=== PATIENT | female | born 1960 | race Caucasian/White ===

== ENCOUNTER → 2018-11-26 07:34 | Outpatient (CLI) | payer OTHER, SELFPAY ==
[2018-11-26 08:08] LABS: Absolute Lymphocyte Count 1.57 X10^3/uL (0.83-4.51); Absolute Neutrophil Count 3.2 X10^3/uL (2.0-7.7); Basophil# 0.04 X10^3/uL; Basophil% 0.7 % (0-1); Eosinophil# 0.12 X10^3/uL; Eosinophils% 2.2 % (0-5); Hemoglobin 14.6 g/dL (12.0-15.0); Lymphocyte # 1.57 X10^3/ul (4.0); Lymphocyte % 29.2 % (19-41); Mean Corpuscular Hgb 32.4 pg (27.0-32.0); Mean Corpuscular Volume 95.6 fL (81-99); Mean Platelet Vol. 10.6 fl (6.2-12.0); Monocyte# 0.44 X10^3/uL; Monocyte% 8.2 % (0-10); NRBC Flagged by Analyzer 0 % (0-5); Neutrophil # 3.19 X10^3/uL (2.7-7.7); Neutrophil % 59.3 % (47-70); Platelet Count 248 K/mm3 (150-450); RBC Distribution Width CV 12.5 % (11.6-14.6); RBC Distribution Width SD 44.3 fl (35.1-43.9); White Blood Count 5.4 K/mm3 (4.4-11.0)
[2018-11-26 08:36] LABS: ALB/GLOB Ratio 1.1 RATIO (0.9-2.4); AST(SGOT) 15 U/L (15-37); Alanine Aminotransfer ALT/SGPT 26 U/L (13-56); Albumin, Serum 3.7 g/dL (3.2-5.0); Alkaline Phosphatase 79 U/L (45-117); Anion Gap 5 (5-15); BUN 12 mg/dL (7-18); BUN/Creat Ratio 16.9 RATIO (10-20); Calcium,Total 8.3 mg/dL (8.5-10.1); Chloride 110 mmol/L (98-107); Cholesterol 228 mg/dL (200); Creatinine, Serum 0.71 mg/dL (0.55-1.02); EST Glomerular Filtration Rate 90 mL/min (>60); Est Glom Filt Rate - Afr Amer 109 mL/min (>60); Globulin 3.4 g/dL (2.2-4.2); Glucose 93 mg/dL (74-106); High Density Lipoprotein 52 mg/dL; Potassium 3.9 mmol/L (3.5-5.1); Protein, Total 7.1 g/dL (6.4-8.2); Sodium Level 143 mmol/L (136-145); Triglycerides 79 mg/dL; Very Low Density Lipoprotein 16 mg/dL (5-40)
== END ==
PROVIDERS: Family Provider Family Medicine; PCP Family Medicine; Referring Provider Family Medicine; Visit Provider Family Medicine
DX: Z00.01 Encounter for general adult medical examination with abnormal findings (principal); E78.5 Hyperlipidemia, unspecified; Z79.890 Hormone replacement therapy
CPT/HCPCS: 36415; 80053; 80061; 85025

== ENCOUNTER → 2019-02-28 16:49 | Outpatient (CLI) | payer OTHER, SELFPAY ==
[2019-03-03 15:03] LABS: Age Gdln ACOG Testing 30-65 (.)
[2019-03-03 15:14] LABS: HPV APTIMA, High Risk Negative (Negative); HPV Reflexed? YES, CHARGE PATIENT
== END ==
PROVIDERS: Family Provider Family Medicine; PCP Family Medicine; Visit Provider Family Medicine
DX: Z12.4 Encounter for screening for malignant neoplasm of cervix (principal)
CPT/HCPCS: 87624; 88175; G0145

== ENCOUNTER → 2019-03-08 16:21 | Outpatient (CLI) | payer OTHER, SELFPAY ==
--- NOTE | 2019-03-08 16:24 | BI_ITS ---
MAMMOGRAPHY - BILATERAL SCREENING REASON FOR EXAM: Female, 58 years old. Routine annual screening examination. PERTINENT HISTORY: Aunt with breast cancer. TECHNIQUE: Digital bilateral breast loy (3D mammographic acquisition) in the CC and MLO projections. 2-D mediolateral oblique (MLO) and craniocaudad (CC) views of both breasts were obtained. CAD: Full Field Digital Mammography with Computer Added Detection was performed. COMPARISON: Comparison is made with prior examination in December 04, 2007. FINDINGS: Breast Composition: The breasts are heterogeneously dense, which may obscure small masses. There are no dominant masses or suspicious calcifications. Stable benign-appearing bilateral axillary lymph nodes. No other significant abnormalities are identified. There has been no significant change since the prior study. BI/SCREEN MAMM (CAD) W/LOY BILAT IMPRESSION: Stable bilateral screening mammogram. Yearly follow-up mammogram recommended. (A) ASSESSMENT CATEGORY: BIRADS Category 2: Benign. A letter regarding these results will be sent to the patient by the facility within 30 days. Approximately 10% of breast cancers are not detected by mammography. A normal mammogram should not delay biopsy of a clinically suspicious abnormality. [id number] Electronically Signed: Dutch Muhammad, at 8:07 EST , Service support ,
== END ==
PROVIDERS: Family Provider Family Medicine; PCP Family Medicine; Referring Provider Family Medicine; Visit Provider Family Medicine
DX: Z12.31 Encounter for screening mammogram for malignant neoplasm of breast (principal); Z80.3 Family history of malignant neoplasm of breast
CPT/HCPCS: 77063; 77067

== ENCOUNTER → 2019-11-06 13:22 | Outpatient (CLI) | payer OTHER, SELFPAY ==
--- NOTE | 2019-11-06 13:28 | BI_ITS ---
MAMMOGRAPHY - BILATERAL DIAGNOSTIC REASON FOR EXAM: Female, 58 years old. Bilateral breast lumps. PERTINENT HISTORY: Aunt with breast cancer. TECHNIQUE: Digital bilateral breast michael (3D mammographic acquisition) in the CC and MLO projections. 2-D mediolateral oblique (MLO) and craniocaudad (CC) views of both breasts were obtained. CAD: Full Field Digital Mammography with Computer Added Detection was performed. COMPARISON: Comparison is made with prior examination dated 03/08/2019. FINDINGS: Breast Composition: The breasts are heterogeneously dense, which may obscure small masses. There are no dominant masses or suspicious calcifications. Stable benign appearing bilateral axillary lymph nodes. No other significant abnormalities are identified. There has been no significant change since the prior study. BI/DIAG MAMM W/CAD, BILAT IMPRESSION: Stable bilateral diagnostic mammogram. With the patient''s history of bilateral palpable lumps, correlation with ultrasound is recommended. ASSESSMENT CATEGORY: BIRADS Category 0: Incomplete. Need additional imaging evaluation. A letter regarding these results will be sent to the patient by the facility within 30 days. Approximately 10% of breast cancers are not detected by mammography. A normal mammogram should not delay biopsy of a clinically suspicious abnormality. Electronically Signed: Dutch Muhammad, at 14:42 EDT , Service support ,
--- NOTE | 2019-11-06 13:28 | US_ITS ---
STUDY: ULTRASOUND BREAST - RIGHT REASON FOR EXAM: Female, 58 years old. Palpable lump in the right breast. TECHNIQUE: Axial and longitudinal images of the RIGHT breast were performed with a high resolution ultrasound transducer. # OF IMAGES: 43 COMPARISON: Comparison is made with prior mammogram done earlier today. FINDINGS: RIGHT Breast: The area of the palpable abnormality was examined by ultrasound. No sonographic abnormality is seen. IMPRESSION: No sonographic abnormality is seen. ASSESSMENT CATEGORY: BIRADS Category 1: Negative. A letter regarding these results will be sent to the patient by the facility within 30 days. Electronically Signed: Dutch Muhammad, at 14:56 EDT , Service support , STUDY: ULTRASOUND BREAST - LEFT REASON FOR EXAM: Female, 58 years old. Palpable lump left breast. TECHNIQUE: Axial and longitudinal images of the LEFT breast were performed with a high resolution ultrasound transducer. # OF IMAGES: 43 COMPARISON: Comparison is made with prior mammogram done earlier today. FINDINGS: LEFT Breast: The area of the palpable abnormality was examined by ultrasound. No sonographic abnormality is seen. US/Breast Limited Unilateral
== END ==
PROVIDERS: PCP Family Medicine; Referring Provider Family Medicine; Visit Provider Family Medicine
DX: N63.10 Unspecified lump in the right breast, unspecified quadrant (principal); N63.20 Unspecified lump in the left breast, unspecified quadrant; Z80.3 Family history of malignant neoplasm of breast
CPT/HCPCS: 76642; 77062; 77066; G0279

== ENCOUNTER → 2019-12-11 10:24 | Outpatient (CLI) | payer OTHER, SELFPAY | PROVIDERS: PCP Family Medicine; Referring Provider Family Medicine; Visit Provider Family Medicine | DX: U07.1 COVID-19 (principal) | CPT/HCPCS: 87635; C9803; U0003 ==

== ENCOUNTER → 2020-05-17 07:34 | Outpatient (CLI) | payer OTHER, SELFPAY ==
[2020-05-17 08:00] LABS: Absolute Lymphocyte Count 1.94 X10^3/uL (0.83-4.51); Absolute Neutrophil Count 3.7 X10^3/uL (2.0-7.7); Basophil# 0.03 X10^3/uL; Basophil% 0.5 % (0-1); Eosinophil# 0.16 X10^3/uL; Eosinophils% 2.5 % (0-5); Hematocrit 46.7 % (37-47); Hemoglobin 15.4 g/dL (12.0-15.0); Lymphocyte # 1.94 X10^3/ul (4.0); Lymphocyte % 30.4 % (19-41); Mean Corpuscular Volume 96.9 fL (81-99); Mean Platelet Vol. 10.4 fl (6.2-12.0); Monocyte# 0.59 X10^3/uL; Monocyte% 9.2 % (0-10); NRBC Flagged by Analyzer 0 % (0-5); Neutrophil # 3.65 X10^3/uL (2.7-7.7); Neutrophil % 57.1 % (47-70); Platelet Count 268 K/mm3 (150-450); RBC Distribution Width CV 12.3 % (11.6-14.6); RBC Distribution Width SD 43.9 fl (35.1-43.9); Red Blood Count 4.82 M/mm3 (4.2-5.4); White Blood Count 6.4 K/mm3 (4.4-11.0)
[2020-05-17 08:25] LABS: AST(SGOT) 16 U/L (15-37); Alanine Aminotransfer ALT/SGPT 27 U/L (13-56); Albumin, Serum 3.8 g/dL (3.2-5.0); Alkaline Phosphatase 96 U/L (45-117); Anion Gap 2 (5-15); BUN 16 mg/dL (7-18); BUN/Creat Ratio 20.7 RATIO (10-20); Chloride 105 mmol/L (98-107); Cholesterol 233 mg/dL (200); Creatinine, Serum 0.77 mg/dL (0.55-1.02); EST Glomerular Filtration Rate 81 mL/min (>60); Est Glom Filt Rate - Afr Amer 99 mL/min (>60); Globulin 3.9 g/dL (2.2-4.2); Glucose 99 mg/dL (74-106); High Density Lipoprotein 58 mg/dL; Protein, Total 7.7 g/dL (6.4-8.2); Sodium Level 139 mmol/L (136-145); Triglycerides 92 mg/dL; Very Low Density Lipoprotein 18 mg/dL (5-40)
== END ==
PROVIDERS: PCP Family Medicine; Referring Provider Family Medicine; Visit Provider Family Medicine
DX: Z01.419 Encounter for gynecological examination (general) (routine) without abnormal findings (principal); E78.5 Hyperlipidemia, unspecified; N95.1 Menopausal and female climacteric states
CPT/HCPCS: 36415; 80053; 80061; 85025

== ENCOUNTER → 2020-11-13 15:54 | Outpatient (CLI) | payer OTHER, SELFPAY ==
--- NOTE | 2020-11-13 15:56 | BI_ITS ---
MAMMOGRAPHY - BILATERAL SCREENING REASON FOR EXAM: Female, 60 years old. Routine annual screening examination. PERTINENT HISTORY: Aunt with breast cancer. TECHNIQUE: Digital bilateral breast loy (3D mammographic acquisition) in the CC and MLO projections. 2-D mediolateral oblique (MLO) and craniocaudad (CC) views of both breasts were obtained. CAD: Full Field Digital Mammography with Computer Added Detection was performed. COMPARISON: Comparison is made with prior study dated 11/06/2019 and 03/08/2019. FINDINGS: Breast Composition: The breasts are heterogeneously dense, which may obscure small masses. There are no dominant masses or suspicious calcifications. No other significant abnormalities are identified. There has been no significant change since the prior study. BI/SCRN MAMM (CAD)W/LOY BILAT IMPRESSION: Stable bilateral screening mammogram. Yearly follow-up mammogram recommended. (A) ASSESSMENT CATEGORY: BIRADS Category 1: Negative. A letter regarding these results will be sent to the patient by the facility within 30 days. Approximately 10% of breast cancers are not detected by mammography. A normal mammogram should not delay biopsy of a clinically suspicious abnormality. [id number] Electronically Signed: Dutch Muhammad MD at 8:22 EDT , Service support ,
== END ==
PROVIDERS: PCP Family Medicine; Referring Provider Family Medicine; Visit Provider Family Medicine
DX: Z12.31 Encounter for screening mammogram for malignant neoplasm of breast (principal)
CPT/HCPCS: 77063; 77067

== ENCOUNTER → 2021-07-08 | Outpatient (CLI) | payer OTHER, SELFPAY ==
[2021-07-12 11:34] LABS: HPV APTIMA, High Risk Negative (Negative)
== END | disposition home or self-care (01) ==
LOC: LABSPEC 09:39
PROVIDERS: PCP Family Medicine; Visit Provider Obstetrics & Gynecology
DX: Z12.4 Encounter for screening for malignant neoplasm of cervix (principal)
CPT/HCPCS: 87624; 88175; G0145

== ENCOUNTER → 2021-09-02 | Outpatient (CLI) | payer OTHER, SELFPAY ==
--- NOTE | 2021-09-02 15:54 | RAD_ITS ---
STUDY: X-RAY CHEST REASON FOR EXAM: Female, 60 years old. COUGH TECHNIQUE: 2 views COMPARISON: None. FINDINGS: Cardiomediastinal silhouette is unremarkable. Costophrenic angles are sharp. Lungs are clear. The trachea is midline. There is no pneumothorax. The left hemidiaphragm is slightly elevated. RAD/Chest PA and Lateral IMPRESSION: No acute cardiopulmonary process. Electronically Signed: Basim Ospina MD at 3:16 EDT ,
[2021-09-02 17:57] LABS: Absolute Neutrophil Count 3.7 X10^3/uL (2.0-7.7); Basophil# 0.05 X10^3/uL; Basophil% 0.7 % (0-1); Eosinophil# 0.23 X10^3/uL; Eosinophils% 3.4 % (0-5); Hematocrit 44.3 % (37-47); Hemoglobin 14.9 g/dL (12.0-15.0); Lymphocyte % 29.7 % (19-41); Mean Corp Hgb Conc 33.6 g/dL (32-36); Mean Corpuscular Hgb 32.8 pg (27.0-32.0); Mean Corpuscular Volume 97.6 fL (81-99); Mean Platelet Vol. 11.1 fl (6.2-12.0); Monocyte% 10.4 % (0-10); NRBC Flagged by Analyzer 0 % (0-5); Neutrophil # 3.74 X10^3/uL (2.7-7.7); Neutrophil % 55.5 % (47-70); Platelet Count 253 K/mm3 (150-450); RBC Distribution Width CV 12.2 % (11.6-14.6); RBC Distribution Width SD 44.2 fl (35.1-43.9); Red Blood Count 4.54 M/mm3 (4.2-5.4); White Blood Count 6.7 K/mm3 (4.4-11.0)
[2021-09-02 18:40] LABS: AST(SGOT) 14 U/L (15-37); Alanine Aminotransfer ALT/SGPT 30 U/L (13-56); Albumin, Serum 3.7 g/dL (3.2-5.0); Alkaline Phosphatase 91 U/L (45-117); Anion Gap 7 (5-15); BUN 21 mg/dL (7-18); BUN/Creat Ratio 30.2 RATIO (10-20); Calcium,Total 8.7 mg/dL (8.5-10.1); Chloride 105 mmol/L (98-107); EST Glomerular Filtration Rate 91 mL/min (>60); Est Glom Filt Rate - Afr Amer 111 mL/min (>60); Globulin 3.7 g/dL (2.2-4.2); Glucose 96 mg/dL (74-106); Potassium 4.2 mmol/L (3.5-5.1); Protein, Total 7.4 g/dL (6.4-8.2); Sodium Level 138 mmol/L (136-145); Thyroid Stim Hormone (TSH) 1.65 uIU/mL (0.358-3.74)
== END | disposition home or self-care (01) ==
LOC: MTLAB 15:53
PROVIDERS: PCP Family Medicine; Referring Provider Family Medicine; Visit Provider Family Medicine
DX: R05.3 Chronic cough (principal); R53.83 Other fatigue
CPT/HCPCS: 36415; 71046; 80053; 84443; 85025

== ENCOUNTER → 2021-09-30 | Outpatient (CLI) | payer OTHER, SELFPAY | END | disposition home or self-care (01) | LOC: SL 13:05 | PROVIDERS: PCP Family Medicine; Referring Provider Family Medicine; Visit Provider Family Medicine | DX: R06.81 Apnea, not elsewhere classified (principal); R53.83 Other fatigue; R06.83 Snoring | CPT/HCPCS: 95806; 95811 ==

== ENCOUNTER → 2021-12-02 | Outpatient (CLI) | payer OTHER, SELFPAY ==
--- NOTE | 2021-12-02 15:29 | BI_ITS ---
MAMMOGRAPHY - BILATERAL SCREENING 3-D TOMOSYNTHESIS REASON FOR EXAM: Female, 61 years old. Routine screening PERTINENT HISTORY: Aunt with breast cancer.. TECHNIQUE: 2-D mammograms and 3-D Tomosynthesis of the breast (s) were performed. CAD was performed. COMPARISON: 11/13/2020 FINDINGS: The breast composition is composed of scattered fibroglandular density. Scattered benign calcifications are seen. No dense spiculated masses or suspicious microcalcifications are identified. No architectural distortion is identified. There is no skin thickening or retraction. There has been no significant change since the prior study. BI/SCRN MAMM (CAD)W/LOY BILAT IMPRESSION: No mammographic signs of malignancy. Routine yearly mammograms recommended. ASSESSMENT CATEGORY: BIRADS Category 2: Benign. A letter regarding these results will be sent to the patient by the facility within 30 days. FOLLOW UP RECOMMENDATION: Yearly follow up mammogram recommended. (A) Approximately 10% of breast cancers are not detected by mammography. A normal mammogram should not delay biopsy of a clinically suspicious abnormality. Electronically Signed: William Bustos MD at 8:32 EDT ,
== END | disposition home or self-care (01) ==
LOC: OPBI 15:27
PROVIDERS: PCP Family Medicine; Visit Provider Family Medicine
DX: Z12.31 Encounter for screening mammogram for malignant neoplasm of breast (principal); Z80.3 Family history of malignant neoplasm of breast
CPT/HCPCS: 77063; 77067

== ENCOUNTER → 2022-08-13 | Outpatient (CLI) | payer OTHER, SELFPAY | END | disposition home or self-care (01) | LOC: SL 20:07 | PROVIDERS: PCP Family Medicine; Visit Provider Family Medicine | DX: G47.33 Obstructive sleep apnea (adult) (pediatric) (principal) | CPT/HCPCS: 95810 ==

== ENCOUNTER → 2022-12-21 | Outpatient (CLI) | payer OTHER, SELFPAY ==
--- NOTE | 2022-12-21 07:41 | BI_ITS ---
MAMMOGRAPHY - BILATERAL SCREENING REASON FOR EXAM: Female, 62 years old. Routine annual screening examination. PERTINENT HISTORY: Aunt with breast cancer. TECHNIQUE: Digital bilateral breast loy (3D mammographic acquisition) in the CC and MLO projections. 2-D mediolateral oblique (MLO) and craniocaudad (CC) views of both breasts were obtained. CAD: Full Field Digital Mammography with Computer Added Detection was performed. COMPARISON: Comparison is made with prior study December 02, 2021 and November 13, 2020. FINDINGS: Breast Composition: The breasts are heterogeneously dense, which may obscure small masses. There are no dominant masses or suspicious calcifications. Stable small benign-appearing bilateral axillary lymph nodes. No other significant abnormalities are identified. There has been no significant change since the prior study. BI/SCRN MAMM (CAD)W/LOY BILAT IMPRESSION: Stable bilateral screening mammogram. Yearly follow-up mammogram recommended. (A) ASSESSMENT CATEGORY: BIRADS Category 2: Benign. A letter regarding these results will be sent to the patient by the facility within 30 days. Approximately 10% of breast cancers are not detected by mammography. A normal mammogram should not delay biopsy of a clinically suspicious abnormality. [id number] Electronically Signed: Dutch Muhammad MD at 9:31 EST ,
== END | disposition home or self-care (01) ==
LOC: OPBI 07:40
PROVIDERS: PCP Family Medicine; Referring Provider Family Medicine; Visit Provider Family Medicine
DX: Z12.31 Encounter for screening mammogram for malignant neoplasm of breast (principal)
CPT/HCPCS: 77063; 77067

== ENCOUNTER → 2023-12-03 | Outpatient (CLI) | payer OTHER, SELFPAY ==
--- OUTSIDE RECORDS SUMMARY | 2023-12-03 17:13 | XMS RPT_ITS ---
Author Name Auto Generated Organization [facility]IP PROBLEMS No Problem Records Found PROCEDURES No Procedure Records Found RESULTS COMPLETE BLOOD COUNT W AUTO DIFFERENTIAL PANEL Collected: 02/27/2023 12:00 AM Status: F Source: [facility] TYPE CODE TESTS RESULT OUT OF RANGE REFERENCE UNITS LAB 6690-2(LOINC) Leukocytes 6.4 4.4-11.3 x10*3/ uL LAB 18792-2(LOINC ) Erythrocytes.nuc leated/100 leukocytes 0.0 0.0-0.0 /100 WBCs LAB 789-8(LOINC) Erythrocytes 4.52 4.00-5.20 x10* 6/uL LAB 718-7(LOINC) Hemoglobin 14.4 12.0-16.0 g/dL LAB 4544-3(LOINC) Hematocrit 44.1 36.0-46.0 % LAB 787-2(LOINC) Erythrocyte mean corpuscular volume 98 80-100 fL LAB 785-6(LOINC) Erythrocyte mean corpuscular hemoglobin 31.9 26.0-34.0 pg LAB 786-4(LOINC) Erythrocyte mean corpuscular hemoglobin concentration 32.7 32.0-36.0 g/dL LAB 788-0(LOINC) Erythrocyte distribution width 12.6 11.5-14.5 % LAB 777-3(LOINC) Platelets 252 150-450 x10*3/uL LAB 770-8(LOINC) Neutrophils/100 leukocytes 57.2 40.0-80.0 % LAB 30871-8(LOINC ) Granulocytes.imm ature/100 leukocytes 0.0 0.0-0.9 % Result Comment: Immature Gra nulocyte Count (IG) includes promyelocytes, myelocytes and metamyelocytes but does not include bands. Percent differential counts (%) should be interpreted in the context of the absolute cell counts (cells/UL). LAB 736-9(LOINC) Lymphocytes/100 leukocytes 29.6 13.0-44.0 % LAB 5905-5(LOINC) Monocytes/100 leukocytes 10.1 2.0-10.0 % LAB 713-8(LOINC) Eosinophils/100 leukocytes 2.5 0.0-6.0 % LAB 706-2(LOINC) Basophils/100 leukocytes 0.6 0.0-2.0 % LAB 751-8(LOINC) Neutrophils 3.63 1.20-7.70 x10*3 /uL Result Comment: Percent diff erential counts (%) should be interpreted in the context of the absolute cell counts (cells/uL). LAB 91874-8(LOINC ) Granulocytes.imm ature 0.00 0.00-0.70 x10*3/uL LAB 731-0(LOINC) Lymphocytes 1.88 1.20-4.80 x10*3 /uL LAB 742-7(LOINC) Monocytes 0.64 0.10-1.00 x10*3/u L LAB 711-2(LOINC) Eosinophils 0.16 0.00-0.70 x10*3 /uL LAB 704-7(LOINC) Basophils 0.04 0.00-0.10 x10*3/u L Performed By: #### [id number] # ### KRISTAN Escobedo ([id number]) [facility] ([facility]) [address] [place], [place] [id number] THYROTROPIN Collected: 12:00 AM Status: F Source: [facility] REPOSITORY Order Comment: TSH testing i s performed using different testing methodology at [facility] than at other [facility]. Direct result comparisons should only be made within the same method. TYPE CODE TESTS RESULT OUT OF RANGE REFERENCE UNITS LAB 3016-3(LOINC) Thyrotropin 1.43 0.44-3.98 mIU/ L Performed By: #### [id number] ## ## KRISTAN Escobedo ([id number]) [facility] ([facility]) [id number] [place], [place] [id number] COMPREHENSIVE METABOLIC 2000 PANEL Collected: 02/27/2023 12:00 AM Status: F Source: [facility] REPOSITORY TYPE CODE TESTS RESULT OUT OF RANGE REFERENCE UNITS LAB 2345-7(LOINC) Glucose 100 High 74-99 mg/dL LAB 2951-2(LOINC) Sodium 142 136-145 mmol/L LAB 2823-3(LOINC) Potassium 4.1 3.5-5.3 mmol/L LAB 2075-0(LOINC) Chloride 106 98-107 mmol/L LAB 2028-9(LOINC) Carbon dioxide 27 21-32 mmo l/L LAB 69634-1(LOINC ) Anion gap 13 10-20 mmol/L LAB 3094-0(LOINC) Urea nitrogen 16 6-23 mg/d L LAB 2160-0(LOINC) Creatinine 0.58 0.50-1.05 mg/dL LAB 48260-5(LOINC ) Glomerular filtration rate/1.73 sq M.predicted >90 >60 mL/min/ 1.73m*2 Result Comment: Calculations of estimated GFR are performed using the 2020 CKD- EPI Study Refit equation without the race variable for the IDMS-Traceable creatinine methods. https://jasn.asnjournals.org/content/early//ASN.4643267746 LAB 67590-2(LOINC ) Calcium 9.5 8.6-10.6 mg/dL LAB 52530-5(LOINC ) Albumin 4.5 3.4-5.0 g/dL LAB 6768-6(LOINC) Alkaline phosphatase 96 33-136 U/L LAB 2885-2(LOINC) Protein 7.1 6.4-8.2 g/dL LAB 23042-1(LOINC ) Aspartate aminotransferase 15 9-39 U/L LAB 1975-2(LOINC) Bilirubin 0.5 0.0-1.2 mg/dL LAB 1743-4(LOINC) Alanine aminotransferase 20 7-45 U/L Result Comment: Patients payton ated with Sulfasalazine may generate falsely decreased results for ALT. Performed By: #### [id number] # ### KRISTAN Escobedo ([id number]) [facility] ([facility]) [address] [place] [address] LIPID 1996 PANEL Collected: 02/27/2023 12:00 AM Stat us: F Source: [facility] TYPE CODE TESTS RESULT OUT OF RANGE REFERENCE UNITS LAB 3-3(LOINC) Cholesterol 250 High 0-199 mg/dL Result Comment: Age Desirable Borderline High High 0-19 Y 0 - 169 170 - 199 >/= 200 20-24 Y 0 - 189 190 - 224 >/= 225 >24 Y 0 - 199 200 - 239 >/= 240 All ranges are based on fasting samples. Specific therapeutic targets will vary based on patient-specific cardiac risk. Pediatric guidelines reference:Pediatrics 2011, 128(S5).Adult guidelines reference: NCEP ATPIII Guidelines,SAURAV 2001, 258:2486-97 Venipuncture immediately after or during the administration of Metamizole may lead to falsely low results. Testing should be performed immediately prior to Metamizole dosing. LAB 5-9(LOINC) Cholesterol.in HDL 52.8 mg/dL Result Comment: Age Very Low Low Normal High 0-19 Y < 35 < 40 40-45 ---- 20-24 Y ---- < 40 >45 ---- >24 Y ---- < 40 40-60 >60 LAB CHHDL CHOLESTEROL/HDL RATIO 4.7 NA Result Comment: Ref Values Desirable < 3.4 High Risk > 5.0 LAB 30287-6(LOINC) Cholesterol.in LDL 179 High <=99 mg/dL Result Comment: Near Borderline AGE Desirable Optimal High High Very High 0-19 Y 0 - 109 --- 110-129 >/= 130 ---- 20-24 Y 0 - 119 --- 120-159 >/= 160 ---- >24 Y 0 - 99 100-129 130-159 160-189 >/=190 LAB VLDL VLDL 18 0-40 mg/dL LAB 2571-8(LOINC) Triglyceride 92 0-149 mg/dL Result Comment: Age Desirable Borderline High High Very High 0 D-90 D 19 - 174 ---- ---- ---- 91 D- 9 Y 0 - 74 75 - 99 >/= 100 ---- 10-19 Y 0 - 89 90 - 129 >/= 130 ---- 20-24 Y 0 - 114 115 - 149 >/= 150 ---- >24 Y 0 - 149 150 - 199 200- 499 >/= 500 Venipuncture immediately after or during the administration of Metamizole may lead to falsely low results. Testing should be performed immediately prior to Metamizole dosing. LAB NHDL NON HDL CHOLESTEROL 197 High 0-149 mg/dL Result Comment: Age Desirable Borderline High High Very High 0-19 Y 0 - 119 120 - 144 >/= 145 >/= 160 20-24 Y 0 - 149 150 - 189 >/= 190 ---- >24 Y 30 mg/dL above LDL Cholesterol goal Performed By: #### [id number] # ### KRISTAN Escobedo ([id number]) [facility] ([facility]) [address] [place] [address] ALLERGIES No Allergies Records Found ENCOUNTERS No Encounter Records Found PAYERS No Payer Records Found
[2023-12-10 10:09] LABS: Age Gdln ACOG Testing 30-65 (.); HPV APTIMA, High Risk Negative (Negative)
[2023-12-10 14:08] LABS: HPV Reflexed? NOT INDICATED
== END | disposition home or self-care (01) ==
LOC: OPBI 17:11
PROVIDERS: PCP Family Medicine; Visit Provider Family Medicine
DX: Z12.31 Encounter for screening mammogram for malignant neoplasm of breast (principal)
CPT/HCPCS: 88175; G0145

== ENCOUNTER → 2023-12-09 | Outpatient (CLI) | payer OTHER, SELFPAY ==
--- NOTE | 2023-12-09 16:32 | US_ITS ---
INDICATION: LLQ ABD PAIN X 3 WEEKS EXAMINATION: Ultrasound US Pelvis Non OB Complete With Transvaginal Imaging TECHNIQUE: Transabdominal and transvaginal pelvic ultrasound was performed. Grayscale, spectral waveform, and color flow Doppler evaluation of the adnexa. COMPARISON: None. FINDINGS: UTERUS: Status post hysterectomy. Multiple nabothian cysts in the cervix. RIGHT OVARY: Not visualized. LEFT OVARY: Not visualized. FREE FLUID: None. US/Pelvic w/ Transvaginal IMPRESSION: Status post hysterectomy. Multiple nabothian cysts. Electronically Signed: Alin Perez MD at 16:28 EDT ,
== END | disposition home or self-care (01) ==
LOC: US 16:27
PROVIDERS: PCP Family Medicine; Referring Provider Family Medicine; Visit Provider Family Medicine
DX: R10.32 Left lower quadrant pain (principal)
CPT/HCPCS: 76830; 76856

== ENCOUNTER → 2023-12-30 | Outpatient (CLI) | payer OTHER, SELFPAY | END | disposition home or self-care (01) | LOC: OPBI 16:23 | PROVIDERS: PCP Family Medicine; Referring Provider Family Medicine; Visit Provider Family Medicine | DX: Z12.31 Encounter for screening mammogram for malignant neoplasm of breast (principal) | CPT/HCPCS: 77063; 77067 ==

== ENCOUNTER 2024-04-28 11:03 | Day surgery (SDC) | payer OTHER, SELFPAY ==
[2024-04-28 11:18] VITALS: BP 142/74; PULSE 79; RESP 16; TEMP 36.6; O2SAT 100; BMI 30.4
--- NOTE | 2024-04-28 11:23 | PCM.PRE.AN2 ---
ASA Classification* ASA Classification ASA Classification: 2 Assessment & Plan Anesthesia* Anesthesia Assessment Anesthesia Assessment: Discussed sedation and/or anesthesia options, risks, benefits, and alternatives with patient/parents/legal guardian/POA. Questions invited. The patient/parents/legal guardian/POA seems to understand and agrees to proceed with anesthesia plan. Reviewed the physical assessment, medical history, allergy history and patient home medications list prior to surgery/procedure/anesthetic and documented any changes. Performed airway and anesthesia risk assessments. Anesthesia Type Anesthesia Type: MAC Anesthesia Focused Assessment* Airway Assessment Mouth opens: >3 cm Mallampati Score: II Focused Labs Anesthesia Preop lab: CBC WBC 6.7 K/mm3 (4.4-11.0) 09/02/21 15:56 09/02/21 RBC 4.54 M/mm3 (4.2-5.4) 09/02/21 15:56 09/02/21 Hgb 14.9 g/dL (12.0-15.0) 09/02/21 15:56 09/02/21 Hct 44.3 % (37-47) 09/02/21 15:56 09/02/21 Plt Count 253 K/mm3 (150-450) 09/02/21 15:56 09/02/21 CHEMISTRY Potassium 4.2 mmol/L (3.5-5.1) 09/02/21 15:56 09/02/21 Sodium 138 mmol/L (136-145) 09/02/21 15:56 09/02/21 BUN 21 mg/dL (7-18) H 09/02/21 15:56 09/02/21 Creatinine 0.70 mg/dL (0.55-1.02) 09/02/21 15:56 09/02/21 Glucose 96 mg/dL (74-106) 09/02/21 15:56 09/02/21 TSH 1.65 uIU/mL (0.358-3.74) 09/02/21 15:56 09/02/21 COAG Pre-Assessment Diagnosis/Proposed Procedure Planned Operative Procedure(s): CSCOPE Anesthesia History Anesthesia History - tax appraiser: Anesthesia History - tax appraiser Hx Hospitalization No 04/26/24 12:53 Any Problems With Anesthesia No 04/26/24 12:53 Cholinesterase deficiency No 04/26/24 12:53 You/Your Family Experience No 04/26/24 12:53 fever (hyperthermia) with Relationship Recent Exposure to Contagious Disease Does patient have nerve No 04/26/24 12:53 stimulator Patient instructed to have device shut off --Does patient have Pacemaker or ICD? When Was Last Pacemaker Check QUESTION #4 FULL TEXT: You/Your Family Experience fever (hyperthermia) with Anesthesia Last Oral Intake Last Oral intake: Last Oral Intake NPO since Meds taken in AM with sips of water? Meds patient instructed to take am of surgery PONV PONV - tax appraiser: PONV - tax appraiser Female Yes 04/26/24 12:53 HX of Motion Sickness No 04/26/24 12:53 HX of N/V After Surgery No 04/26/24 12:53 Non-Smoker Yes 04/26/24 12:53 Duration of Surgery greater No 04/26/24 12:53 than 60 minutes Number of Risk Factors 2 04/26/24 12:53 PONV Score Moderate Risk 04/26/24 12:53 Height & Weight Height & Weight: Anesthesia: Height & Weight Height 5 ft 9 in 02/07/24 09:27 Respiratory Assessment Respiratory Assessment - tax appraiser: Respiratory Tract Infection Hx - tax appraiser Hx Respiratory Tract Infection No 04/26/24 12:53 STOP Sleep Apnea STOP Sleep Apnea - tax appraiser: STOP Sleep Apnea - tax appraiser Hx Hypertension No 04/26/24 12:53 Hx Sleep Apnea No 04/26/24 12:53 CPAP BIPAP Do you snore loudly (louder No 04/26/24 12:53 than talking or can be heard Do you often feel tired/ No 04/26/24 12:53 fatigued/ sleepy during daytime? Has anyone observed you stop No 04/26/24 12:53 breathing during sleep? STOP Results Negative 04/26/24 12:53 QUESTION #5 FULL TEXT : Do you snore loudly (louder than talking or can be heard through closed doors)? 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 Specify any problems Hx of Preganancy in last 3 N/A 04/26/24 12:53 Months Nurse Filling Out Transfusion NBUCHER 04/26/24 12:53 & Questions: Date: 04/26/24 04/26/24 12:53 Time: 12:53 04/26/24 12:53 Patient unable to answer at this time (ie. confused, unrespo /Reproduction History /Reproductive History - tax appraiser: /Reproductive Hx- tax appraiser Hx Now No 04/26/24 12:53 Gestational Age (in weeks): EDC: Hx Hx Para Hx Section SAB No 04/26/24 12:53 PFSH Medical History Non-smoker Home Medications ?Medication ?Instructions ?Recorded ?Last Taken ?Type duloxetine 30 mg capsule,delayed 30 mg PO QDAY 02/07/24 Unknown History release (Cymbalta) multivitamin 1 tab PO QDAY 02/07/24 Unknown History omega-3 fatty acids-fish oil 360 1 cap PO QDAY 02/07/24 Unknown History mg-1,200 mg capsule (Fish Oil) semaglutide 1 mg/dose (2 mg/1.5 1 mg subcut WE 02/07/24 Unknown History mL) subcutaneous pen injector vitamin E (dl, acetate) 45 mg (100 45 mg PO QDAY 02/07/24 Unknown History unit) capsule Allergy/AdvReac Type Severity Reaction Status Date / Time No Known Allergies Allergy Verified 04/28/24 11:18 Surgical History History of tonsillectomy (~1983) History of partial hysterectomy Hx of colonoscopy Social History household members: spouse current occupational status: employed 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
--- NOTE | 2024-04-28 11:35 | PCM.HP.STD ---
HPI - General General Date of Admission: 04/28/24 Date of Service: 04/28/24 Chief Complaint: Screening colonoscopy HPI Narrative RAGINI WHITTEN, is a 63 F who presents today for screening colonoscopy. She had a colonoscopy approximately 10 years ago. She does not have any about this time. [facility] Medical History Non-smoker Home Medications ?Medication ?Instructions ?Recorded ?Last Taken ?Type duloxetine 30 mg capsule,delayed 30 mg PO QDAY 02/07/24 Unknown History release (Cymbalta) multivitamin 1 tab PO QDAY 02/07/24 Unknown History omega-3 fatty acids-fish oil 360 1 cap PO QDAY 02/07/24 Unknown History mg-1,200 mg capsule (Fish Oil) semaglutide 1 mg/dose (2 mg/1.5 1 mg subcut WE 02/07/24 Unknown History mL) subcutaneous pen injector vitamin E (dl, acetate) 45 mg (100 45 mg PO QDAY 02/07/24 Unknown History unit) capsule Allergy/AdvReac Type Severity Reaction Status Date / Time No Known Allergies Allergy Verified 04/28/24 11:18 Surgical History History of tonsillectomy (~1983) History of partial hysterectomy Hx of colonoscopy Social History household members: spouse current occupational status: employed 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 Status: Never smoker substance use type: does not use ROS Constitutional Constitutional: Denies fatigue, fever(s), poor appetite, weight gain or weight loss Gastrointestinal Gastrointestinal: Denies belching, bloating, change in bowel habits, change in stool character, chewing difficulty, coffee ground emesis, constipation, cramping, diarrhea, dyspepsia, dysphagia, early satiety, excessive flatus, fecal incontinence, heartburn, hematemesis, hematochezia, hemorrhoids, loose stools, melena, nausea, odynophagia, rectal bleeding, tenesmus, vomiting or weight changes Vital Signs Vital Signs Vital Signs: 04/28/24 11:18 04/28/24 11:18 Temperature 97.8 F Temperature Source Temporal Pulse Rate 79 Respiratory Rate 16 Respiratory Pattern Normal Blood Pressure 142/74 H Blood Pressure Mean 96 Blood Pressure Source Monitor Blood Pressure Position Semi-Fowlers Blood Pressure Location Left Arm Pulse Ox 100 Weight Weight: 206 lb 9.17 oz Body Mass Index (BMI) 30.4 Physical Exam Const alert, oriented x3, no apparent distress and healthy appearing General Appearance: cooperative GI normal to inspection, nondistended, normoactive bowel sounds, soft to palpation, non-tender and non-distended Percussion: normal to percussion Rectal Exam: deferred Assessment & Plan Assessment/Plan (1) Encounter for screening for malignant neoplasm of colon: PLAN: She was explained alternatives, benefits, risk including understanding. Infection, sepsis, perforation, need for emergent surgery . She will have an ASA of 3.
--- NOTE | 2024-04-28 12:00 | COL._PTH ---
PATIENT: RAGINI WHITTEN LOC: EN U#:[id number] AGE/SX: 63/F ROOM: RE04/28/[address]: Dr. Caesar Mcelroy DO : 1960 BED: DIS: 04/28/2024 SPEC #: [id number] RECD: 05/01/24 09:46 STATUS: MIKALA REThanh #: [id number] REUBEN: 04/28/24 12:[address]: Caesar Mcelroy DEPT: SURGICAL PATHOLOGY RECD BY: Luke Brian ENTERED: 05/01/24 09:35 SP TYPE: COLON OTHR DR: Dr. Madelaine Bob MD Tissues: A - Colon, NOS Procedures: Surgery Specimen Level HEADER OPERATION: Colonoscopy PRE-OP DIAGNOSIS: Encounter for screening for malignant neoplasm of colon TISSUE SUBMITTED: A- Sigmoid polyp MICROSCOPIC DIAGNOSIS Sigmoid Colon Polyp, Biopsy: Tubular Adenoma Brooke Jones M.D., 05/06/24 MICROSCOPIC DESCRIPTION Slides are reviewed. GROSS DESCRIPTION A. Received in fixative is one container labeled with the patient's name and designated Sigmoid polyp. The specimen consists of one irregular fragment of light greco soft tissue that measures 0.4 x 0.4 x 0.2 cm. The specimen is totally submitted in one cassette. 05/01/2024 CPT:01573 , TC:1
[2024-04-28 12:40] VITALS: BP 141/80; BP 142/74; PULSE 70; RESP 16; TEMP 36.3; O2SAT 97
--- NOTE | 2024-04-28 12:44 | OP.COLON_ITS ---
Patient Name: Lata Lewis Procedure Date: 04/28/2024 12:00 PM Date of : 1960 Age: 63 Procedure: Colonoscopy Indications: Screening for colorectal malignant neoplasm Providers: Caesar Mcelroy DO Referring MD: Madelaine Bob Medicines: Monitored Anesthesia Care Patient Profile: This is a 63 year old female. Refer to note in patient chart for documentation of history and physical. Last Colonoscopy: more than 10 years ago. Complications: No immediate complications. Procedure: Pre-Anesthesia Assessment: - Prior to the procedure, a History and Physical was performed, and patient medications and allergies were reviewed. The patient is competent. The risks and benefits of the procedure and the sedation options and risks were discussed with the patient. All questions were answered and informed consent was obtained. Patient identification and proposed procedure were verified by the physician in the pre-procedure area. Mental Status Examination: alert and oriented. Airway Examination: normal oropharyngeal airway and neck mobility. Respiratory Examination: clear to auscultation. CV Examination: normal. Prophylactic Antibiotics: The patient does not require prophylactic antibiotics. Prior Anticoagulants: The patient has taken no anticoagulant or antiplatelet agents. ASA Grade Assessment: II - A patient with mild systemic disease. After reviewing the risks and benefits, the patient was deemed in satisfactory condition to undergo the procedure. The anesthesia plan was to use monitored anesthesia care (MAC). Immediately prior to administration of medications, the patient was re-assessed for adequacy to receive sedatives. The heart rate, respiratory rate, oxygen saturations, blood pressure, adequacy of pulmonary ventilation, and response to care were monitored throughout the procedure. The physical status of the patient was re-assessed after the procedure. After I obtained informed consent, the scope was passed under direct vision. Throughout the procedure, the patient's blood pressure, pulse, and oxygen saturations were monitored continuously. The Colonoscope was introduced through the anus and advanced to the cecum, identified by the appendiceal orifice, ileocecal valve and palpation. The colonoscopy was performed without difficulty. The patient tolerated the procedure well. The quality of the bowel preparation was adequate. The ileocecal valve, appendiceal orifice, and rectum were photographed. Scope In: 12:16:19 PM Scope Withdrawal Time 0 hours 13 minutes 6 seconds Scope Out: 12:36:08 PM Total Procedure Duration Time 0 hours 19 minutes 49 seconds Findings: The perianal and digital rectal examinations were normal. Many small and large-mouthed diverticula were found in the recto-sigmoid colon and sigmoid colon. A 7 mm polyp was found in the sigmoid colon. The polyp was sessile. The polyp was removed with a jumbo cold forceps. Resection and retrieval were complete. Verification of patient identification for the specimen was done. Estimated blood loss was minimal. The exam was otherwise without abnormality on direct and retroflexion views. Impression: - Diverticulosis in the recto-sigmoid colon and in the sigmoid colon. - One 7 mm polyp in the sigmoid colon, removed with a jumbo cold forceps. Resected and retrieved. - The examination was otherwise normal on direct and retroflexion views. Recommendation: - Discharge patient to home. - Resume previous diet. - Continue present medications. - Await pathology results. - Repeat colonoscopy in 5 years for surveillance. Procedure Code(s): --- Professional --- 86800, Colonoscopy, flexible; with biopsy, single or multiple CPT copyright 2021 [employer] [employer]. All rights reserved. The codes documented in this report are preliminary and upon product technology scientist review may be revised to meet current compliance requirements. Caesar Mcelroy DO 04/28/2024 12:44:03 PM This report has been signed electronically. Number of Addenda: 0 Note Initiated On: 04/28/2024 12:00 PM
--- NOTE | 2024-04-28 12:44 | OP.CCLET_ITS ---
04/28/2024 Madelaine Bob [place] [id number] [place] [address] Re : Colonoscopy procedure for Latamaricruz Lewis Dear Dr. Bob This procedure was performed on Sunday, April 28, 2024. My impressions and recommendations are as follows: Impressions : - Diverticulosis in the recto-sigmoid colon and in the sigmoid colon. - One 7 mm polyp in the sigmoid colon, removed with a jumbo cold forceps. Resected and retrieved. - The examination was otherwise normal on direct and retroflexion views. Recommendations : - Discharge patient to home. - Resume previous diet. - Continue present medications. - Await pathology results. - Repeat colonoscopy in 5 years for surveillance. My findings are described in the full procedure note, which is enclosed. If I can be of further assistance, please feel free to contact me at . Sincerely, Caesar Mcelroy, 04/28/2024 12:44:03 PM This report has been signed electronically.
[2024-04-28 12:45] VITALS: BP 128/76; BP 142/74; PULSE 69; RESP 16; O2SAT 97
--- NOTE | 2024-04-28 12:47 | PCM.POST.ANE ---
Anesthesia: Postop Eval I Current Vital Signs Temperature: 97.4 F Pulse Rate: 68 Blood Pressure: 141/80 Respiratory Rate: 16 Pulse Ox: 98 Oxygen Delivery Method: Room Air Assessment Airway patent: Yes Spontaneous unlabored respirations: Yes Mental status: Asleep nausea: No Vomiting: No Anesthesia Complication: No Fluid Hydration Crystalloid volume administer (ml): 40 Total IV fluid infused: 40 Progress Note Anesthesia document: Postop Eval 1 completed: Yes
[2024-04-28 12:48] VITALS: BP 141/80; PULSE 68; RESP 16; TEMP 36.3; O2SAT 98
[2024-04-28 12:50] VITALS: BP 130/75; BP 142/74; PULSE 69; RESP 16; TEMP 36.5; O2SAT 95
[2024-04-28 13:10] VITALS: BP 142/74
--- NOTE | 2024-04-28 14:52 | PCM.POSTANE2 ---
Anesthesia Postop Eval I Sum Postop Eval Completion status Anesthesia document: Postop Eval 1 completed: Yes Anesthesia Postop Eval I Summary Anesthesia Postop Eval I Summary: Anesthesia Postop Eval I: Assessment Summary Airway patent Yes 04/28/24 12:48 [email or web address] Spontaneous unlabored Yes 04/28/24 12:48 [email or web address] respirations Mental status Asleep 04/28/24 12:48 [email or web address] nausea No 04/28/24 12:48 [email or web address] Vomiting No 04/28/24 12:48 [email or web address] Anesthesia Postop Eval I: Fluid Summary Crystalloid volume administer 40 04/28/24 12:48 [email or web address] (ml) Colloids volume administered ( ml) Blood Product volume administered (ml) Total IV fluid infused 40 04/28/24 12:48 [email or web address] Anesthesia Postop Eval I: Summary Notes Anesthesia Complication No 04/28/24 12:48 [email or web address] Anesthesia Complication Comment: Post-operative progress note Anesthesia: Postop Eval II Evaluation Mental status: Awake Pain Level: 0 nausea: No Vomiting: No
== END 2024-04-28 13:21 | disposition home or self-care (01) ==
LOC: EN 11:04 → AC 11:05
PROVIDERS: PCP Family Medicine; Referring Provider Family Medicine; Visit Provider Internal Medicine Gastroenterology
PROC: 0DJD8ZZ Inspection of Lower Intestinal Tract, Via Natural or Artificial Opening Endoscopic (ICD-10-PCS; CPT 45378; principal; 2024-04-28 11:55)
DX: Z12.11 Encounter for screening for malignant neoplasm of colon (principal); D12.5 Benign neoplasm of sigmoid colon; K57.30 Diverticulosis of large intestine without perforation or abscess without bleeding; Z79.85 Long-term (current) use of injectable non-insulin antidiabetic drugs; Z79.899 Other long term (current) drug therapy
CPT/HCPCS: 45380; 88309; A4216; J2405

== ENCOUNTER → 2025-01-22 | Outpatient (CLI) | payer OTHER, SELFPAY ==
--- NOTE | 2025-01-22 16:23 | BI_ITS ---
EXAM: SCRN MAMM (CAD)W/LOY BILAT DATE: 01/22/2025 CLINICAL HISTORY: F, Age 64 y/o , SCREENING Aunt with breast cancer TECHNIQUE: Procedure Code: [id number] Modality: MG Procedure: SCRN MAMM (CAD)W/LOY BILAT COMPARISON: Prior exam(s) dated December 30, 2023.. FINDINGS: TISSUE DENSITY: The breasts are heterogeneously dense, which may obscure small masses. Bilateral Breast Mammographic Findings: No significant masses, calcifications or other abnormalities are identified. No suspicious masses, areas of developing architectural distortion, or suspicious calcifications. There has been no significant interval change. BI/SCRN MAMM (CAD)W/LOY BILAT IMPRESSION: Stable bilateral screening mammogram. OVERALL FINAL ASSESSMENT BI-RADS 1: NEGATIVE. RECOMMENDATION: Routine annual follow-up in 1 Year Additional Recommendation none A letter with findings and recommendations will be mailed to the patient. Reading Location: [place] [id number]
== END | disposition home or self-care (01) ==
PROVIDERS: PCP Family Medicine; Referring Provider Family Medicine; Visit Provider Family Medicine
DX: Z12.31 Encounter for screening mammogram for malignant neoplasm of breast (principal)
CPT/HCPCS: 77063; 77067